=== PATIENT | male | born 1960 | race Two or more races ===

== ENCOUNTER 2016-12-01 05:08 | Emergency (ER) | payer SELFPAY ==
[~2016-12-01] VITALS: Ht 170.2 cm; Wt 63.5 kg
[2016-12-01] MEDS ORDERED: NKM (05:11)
[2016-12-01 05:12] VITALS: BP 126/91
[2016-12-01] MEDS ORDERED: BENADRYL25 MG ORAL (05:24)
--- NOTE | 2016-12-01 05:24 | Emergency Room Report ---
History of Present Illness General Chief Complaint: Generalized Weakness Source: Patient, EMS Present Illness HPI Is a 56-year-old male with no past medical history. He presents with chief complaint of having bugs on him. He denies any drug use. Denies any fever or chills. He said the bus all over his apartment. They are in the gould and ceiling. He called 911. He showed EMS of a video What he said were bugs. They said they did not see anything. he showed me picture of his hair and said there were bugs on it. He said he felt achy. No other complaint. This has been ongoing for a while now. Allergies: Coded Allergies: No Known Allergies (Unverified , 12/01/16) Patient History Past Medical History: see triage record, old chart reviewed Past Surgical History: none Pertinent Family History: none Immunizations: other Reviewed Nursing Documentation: PMH: Agreed, PSxH: Agreed Nursing Documentation-PMH Past Medical History: No Stated History Review of Systems Eye: Denies: blurred vision, eye pain ENT: Denies: ear pain, nose congestion, throat swelling Respiratory: Denies: cough, shortness of breath Cardiovascular: Denies: chest pain, palpitations Gastrointestinal: Denies: abdominal pain, diarrhea, nausea, vomiting Musculoskeletal: Denies: back pain, joint pain Skin: Denies: rash Neurological: Denies: headache, numbness Endocrine: Denies: increased thirst, increased urine Hematologic/Lymphatic: Denies: easy bruising All Other Systems: negative except mentioned in HPI Physical Exam Vital Signs Date Time Temp Pulse Resp B/P Pulse Ox O2 Delivery O2 Flow Rate FiO2 12/01/16 05:07 98.2 80 16 126/91 100 vitals normal Sp02 EP Interpretation: reviewed, normal General Appearance: well appearing, no apparent distress, alert Head: normocephalic, atraumatic Eyes: bilateral eye EOMI, bilateral eye PERRL ENT: hearing grossly normal, normal pharynx Neck: full range of motion, supple, no meningismus Respiratory: chest non-tender, lungs clear, normal breath sounds Cardiovascular #1: regular rate, rhythm, no murmur Gastrointestinal: normal bowel sounds, non tender, no mass, no organomegaly, no bruit, non-distended Musculoskeletal: back normal, gait/station normal, normal range of motion Psychiatric: mood/affect normal Skin: warm/dry Medical Decision Making Diagnostic Impression: Primary Impression: Delusions of parasitosis ER Course Patient said that he has bugs in his head. The picture that he showed is a very close up off his hair. What he pointed to were lights off his hair. He denies any drug use. He refuse to give a urine sample. Last Vital Signs Date Time Temp Pulse Resp B/P Pulse Ox O2 Delivery O2 Flow Rate FiO2 12/01/16 05:12 98.2 80 16 126/91 100 Status: improved Disposition: HOME, SELF-CARE Condition: Stable Scripts Diphenhydramine Hcl* (BENADRYL*) 25 Mg Capsule 50 MG ORAL Q6H Y for Itching, #30 CAP Prov: JOHANNA PEARSON M.D. 12/01/16 Additional Instructions: Followup with your DrAp in 2-5 days. Abstain from drugs and alcohol. Return if symptom worsen. JOHANNA PEARSON M.D. Dec 01, 2016 05:24
[2016-12-01 05:44] VITALS: BP 126/91
[2016-12-01] MEDS ORDERED: Bacitracin Oint UD TOPIC ONE (20:36)
== END 2016-12-01 05:50 | disposition home or self-care (01) ==
LOC: EDBD 05:08 → EMR 05:48
DX: F22 Delusional disorders (principal)
CPT/HCPCS: 80300; 99283